=== PATIENT | female | born 1960 | race Caucasian/White ===

== ENCOUNTER 2020-02-03 16:32 | Emergency (ER) | payer SELFPAY ==
[~2020-02-03] VITALS: Ht 160 cm; Wt 67.6 kg
[2020-02-03 16:40] VITALS: Ht 160 cm; Wt 67.6 kg
[2020-02-03 18:03] LABS: BASOPHIL % 0.3 % (0.2-1.3); PLATELET COUNT 186 x10^3mcL (179-408); RED CELL DISTRIBUTION WIDTH 13.4 % (12.3-17.7)
[2020-02-03 18:19] LABS: CALCIUM 9.1 mg/dL (8.5-10.1); CARBON DIOXIDE 25.7 mmol/L (21-32); CHLORIDE SERUM 103 mmol/L (98-107); CREATININE SERUM 0.8 mg/dL (0.6-1.0); GFR1 > 60 mL/min; GLUCOSE SERUM 112 mg/dL (74-106); POTASSIUM SERUM 3.7 mmol/L (3.5-5.1); SODIUM SERUM 140 mmol/L (136-145)
[2020-02-03 18:23] LABS: ALBUMIN 3.9 g/dL (3.4-5.0); ALKALINE PHOSPHATASE 81 U/L (46-116); ALT/SGPT 34 U/L (14-59); AST/SGOT 20 U/L (15-37); BILIRUBIN TOTAL 0.39 mg/dL (0.20-1.00); LIPASE 107 IU/L (73-393)
[2020-02-03 18:24] LABS: TOTAL PROTEIN, SERUM 8.7 g/dL (6.4-8.2)
[2020-02-03 18:41] VITALS: BP 130/83
== END 2020-02-03 18:41 | disposition home or self-care (01) ==
LOC: ED 16:32
PROVIDERS: Emergency Medicine
DX: K80.20 Calculus of gallbladder without cholecystitis without obstruction (principal); I10 Essential (primary) hypertension
CPT/HCPCS: J1885